=== PATIENT | female | born 1975 | race African-American/Black ===

== ENCOUNTER 2016-12-16 10:10 | Outpatient (CLI) | payer OTHER ==
--- NOTE | 2016-12-16 15:47 | Mammography Report ---
BILATERAL DIGITAL SCREENING MAMMOGRAM with CAD : 12/16/16 10:10:00 CLINICAL: Routine screening. COMPARISON:None available. FINDINGS: The breasts are heterogeneously dense, which may obscure small masses. No mass, architectural distortion or suspicious calcifications. IMPRESSION: No mammographic evidence of malignancy. BI-RADS CATEGORY: 2 -- Benign RECOMMENDATION: Routine mammographic screening in one year. COMMENT: Patient follow-up letters are generated by our [employer] application.
== END 2016-12-16 10:11 | disposition home or self-care (01) ==
LOC: SPVWC 10:10
PROVIDERS: ATTEND Family Medicine
DX: Z12.31 Encounter for screening mammogram for malignant neoplasm of breast (principal)
CPT/HCPCS: 77067; G0202

== ENCOUNTER 2017-12-19 15:19 | Outpatient (CLI) | payer OTHER ==
--- NOTE | 2017-12-19 16:06 | Mammography Report ---
BILATERAL DIGITAL SCREENING MAMMOGRAM with CAD: 12/19/17 15:19:00 CLINICAL: Routine screening. COMPARISON:12/16/16 FINDINGS: The breasts are heterogeneously dense, which may obscure small masses. No mass, architectural distortion or suspicious calcifications. IMPRESSION: No mammographic evidence of malignancy. BI-RADS CATEGORY: 1 - - Negative RECOMMENDATION: Routine mammographic screening in one year. COMMENT: Patient follow-up letters are generated by our [employer] application.
== END 2017-12-19 15:20 | disposition home or self-care (01) ==
LOC: SPVWC 15:19
PROVIDERS: ATTEND Family Medicine
DX: Z12.31 Encounter for screening mammogram for malignant neoplasm of breast (principal)
CPT/HCPCS: 77067

== ENCOUNTER 2019-02-01 14:38 | Outpatient (CLI) | payer OTHER ==
--- NOTE | 2019-02-05 08:15 | Mammography Report ---
DIGITAL SCREENING MAMMOGRAM WITH CAD, 02/01/2019 INDICATION: Routine screening mammography. TECHNIQUE: Digital bilateral 2D mammography was obtained in the craniocaudal and mediolateral obliq ue projections. This examination was interpreted with the benefit of Computer-Aided Detection analysi s. COMPARISON: 12/09/2017 and 12/16/2016 FINDINGS: Breast Density: The breasts are heterogeneously dense, which may obscure small masses. Left parenchymal asymmetries require additional imaging. No architectural distortion or suspicious ca lcifications. The right breast is negative. IMPRESSION: Left asymmetries requiring additional imaging. Recommend recall for left spot compression views and left breast ultrasound. Follow up recommendation: Special View: Spot Category 0: Incomplete. Needs additional imaging evaluation and/or prior mammograms for comparison. A "normal" or negative report should not discourage follow up or biopsy of a clinically significant f inding. A written summary of these findings will be mailed to the patient. The patient will be entered into a mammography reporting system which will generate a reminder letter for the patient's next appointmen t at the appropriate interval. The [employer] recommends yearly mammograms starting at age 40 and continuing as l eileen as a woman is in good health. Breast MRI is recommended for women with an approximate 20-25% or greater lifetime risk of breast cancer, including women with a strong family history of breast or ova juan miguel cancer or who have been treated for Hodgkin's disease. Signer Name: Hammad Hussein MD Signed: 02/05/2019 8:11 AM Workstation Name: [id number]
== END 2019-02-01 14:39 | disposition home or self-care (01) ==
LOC: SPVWC 14:38
PROVIDERS: ATTEND Family Medicine
DX: Z12.31 Encounter for screening mammogram for malignant neoplasm of breast (principal)
CPT/HCPCS: 77067

== ENCOUNTER 2019-02-15 12:49 | Outpatient (CLI) | payer OTHER ==
--- NOTE | 2019-02-15 14:15 | Mammography Report ---
LEFT DIGITAL DIAGNOSTIC MAMMOGRAM WITH CAD -- 02/15/2019 LEFT COMPLETE BREAST ULTRASOUND INDICATION: Recall to evaluate mammographic asymmetries. TECHNIQUE: Digital left mammographic imaging was performed. Spot compression views were obtained. Co mplete ultrasound of all four (4) quadrants was performed. This examination was interpreted with the benefit of Computer-Aided Detection (CAD) analysis. COMPARISON: 02/01/2019 screening. FINDINGS: Breast Density: The breasts are heterogeneously dense, which may obscure small masses. MAMMOGRAPHIC FINDINGS: Spot compression views demonstrates partial effacement of multiple partially c ircumscribed densities. ULTRASOUND FINDINGS: Complete sonographic evaluation of all 4 quadrants and retroareolar region was p erformed. Ultrasound demonstrated an oval complex cyst versus solid mass at 12:00 4 cm from the nip ple measuring 1.8 x 1.0 x 1.4 cm. A benign cyst at 1:00 2 cm from the nipple measuring 1.5 x 0.8 x 1. 1 cm. A benign cyst at 2:00 7 cm from the nipple measuring 1.1 x 0.6 x 1.1 cm. A retroareolar cyst at 10:00 measuring 0.9 x 0.5 x 0.9 cm and a benign cyst at 9:30 o'clock 4 cm from the nipple measuring 1.6 x 0.9 x 1.7 cm. This cyst has a few internal echoes. IMPRESSION: Benign cysts and a complex cyst versus solid mass at 12:00 4 cm from the nipple. Recommen d ultrasound-guided needle aspiration/biopsy of this lesion. I discussed the findings and recommendation for needle biopsy with the patient and her at the time of the exam. Follow up recommendation: Biopsy BI-RADS Category 4: Suspicious for Malignancy. A "normal" or negative report should not discourage follow up or biopsy of a clinically significant f inding. A written summary of these findings will be mailed to the patient. The patient will be entered into a mammography reporting system which will generate a reminder letter for the patient's next appointmen t at the appropriate interval. According to the [employer], yearly mammograms are recommended starting at age 40 and continuing as long as a woman is in good health. Breast MRI is recommended for women with an jacqueline roximately 20-25% or greater lifetime risk of breast cancer, including women with a strong family his tory of breast or ovarian cancer and women who have been treated for Hodgkin's disease. Signer Name: Hammad Hussein MD Signed: 02/15/2019 2:10 PM Workstation Name: [id number]
== END 2019-02-15 12:50 | disposition home or self-care (01) ==
LOC: SPVWC 12:49
PROVIDERS: ATTEND Family Medicine
DX: R92.8 Other abnormal and inconclusive findings on diagnostic imaging of breast (principal)

== ENCOUNTER 2019-02-26 13:50 | Outpatient (CLI) | payer OTHER ==
--- NOTE | 2019-02-26 15:12 | Ultrasound Report ---
ULTRASOUND-GUIDED NEEDLE ASPIRATION LEFT BREAST CLINICAL: Complex cyst versus solid mass at 12:00 4 cm from the nipple. FINDINGS: The procedure was explained to the patient and informed consent was obtained. Ultrasound demonstrated the previously identified lesion. I marked the breast with a felt tip marker and a timeout was called. The skin was prepped with Chloro -Prep and anesthetized with 1% lidocaine. Needle aspiration was performed using ultrasound guidance, 1% lidocaine for anesthesia and an 18-gaug e needle. The lesion showed complete collapse with aspiration an approximately 2 cc of cloudy yellow fluid was removed. The fluid was discarded and a clip was not deployed at the site of aspiration. The patient tolerated the procedure well and there were no apparent complications. Hemostasis was achiev ed with minimal effort and a sterile dressing was applied. IMPRESSION: Uncomplicated ultrasound guided needle aspiration of a benign cyst left breast at 12:00 4 cm from the nipple. Signer Name: Hammad Hussein MD Signed: 02/26/2019 3:08 PM Workstation Name: [id number]
== END 2019-02-26 13:51 | disposition home or self-care (01) ==
LOC: SPVWC 13:50
PROVIDERS: ATTEND Family Medicine
DX: N60.01 Solitary cyst of right breast (principal); R92.8 Other abnormal and inconclusive findings on diagnostic imaging of breast

== ENCOUNTER 2020-02-05 07:59 | Outpatient (CLI) | payer OTHER ==
--- NOTE | 2020-02-06 17:00 | Mammography Report ---
BILATERAL DIGITAL SCREENING MAMMOGRAM WITH CAD HISTORY: SCREENING MAMMOGRAM TECHNIQUE: Routine digital mammographic imaging performed. This examination was interpreted with lisa jon benefit of Computer-aided Detection analysis. COMPARISON: 02/26/2019, 02/15/2019, 02/01/2019, 12/19/2017, 12/16/2016. FINDINGS: Breast Density: heterogeneously dense breast parenchymal pattern which somewhat lessens the sensitivi ty of the evaluation. Digital CC and MLO views demonstrate no mammographic evidence of malignancy. There are multiple scat tered circumscribed and obscured round and oval masses in both breasts. These are most consistent wit h cysts. Of note, the patient has a history of benign cyst aspiration. IMPRESSION: No mammographic evidence of malignancy. If the clinical examination remains stable, recommend bilate ral mammogram in approximately one year. BIRADS 2: Benign Finding(s). FURTHER INFORMATION: According to the [employer], yearly mammograms are recommend ed starting at age 40 and continuing as long as a woman is in good health. Clinical Breast Exams shou ld be part of a periodic health exam-about every 3 years for women in their 20s and 30s and every yea r for women 40 and over. Breast self exam is an option for women starting in their 20s. Any breast ch bernarda noted on a breast self exam should be reported promptly to the patient's healthcare provider. Br east MRI is recommended for women with an approximately 20-25% or greater lifetime risk of breast can cer, including women with a strong family history of breast or ovarian cancer and women who have been treated for Hodgkin's disease. A negative Mammography report should not discourage follow up or biopsy of a clinically significant f inding and/or abnormality. Dense breast tissue may obscure small neoplasms. The patient will be entered into a reminder system with a target due date for the next screening mamm ogram. Signer Name: Kahlil Roberts MD Signed: 02/06/2020 4:49 PM Workstation Name: [id number]
== END 2020-02-05 08:00 | disposition home or self-care (01) ==
LOC: SPVWC 07:59
PROVIDERS: ATTEND Family Medicine
DX: Z12.31 Encounter for screening mammogram for malignant neoplasm of breast (principal)
CPT/HCPCS: 77067

== ENCOUNTER 2021-02-05 11:13 | Outpatient (CLI) | payer OTHER ==
--- NOTE | 2021-02-05 13:05 | Mammography Report ---
DIGITAL SCREENING MAMMOGRAM WITH CAD, 02/05/2021 CLINICAL INFORMATION / INDICATION: Routine screening mammography. SCREENING MAMMO Z12.31 TECHNIQUE: Digital bilateral 2D mammography was obtained in the craniocaudal and mediolateral obliqu e projections. This examination was interpreted with the benefit of Computer-Aided Detection analysis . COMPARISON: 12/16/2016 through 02/05/2020. FINDINGS: Breast Density: The breasts are heterogeneously dense, which may obscure small masses. No dominant mass, suspicious calcifications, or architectural distortion in either breast. There is benign-appearing changing nodularity bilaterally. IMPRESSION: No mammographic evidence of malignancy. Follow up recommendation: Routine yearly BI-RADS Category 2: Benign. A "normal" or negative report should not discourage follow up or biopsy of a clinically significant f inding. A written summary of these findings will be mailed to the patient. The patient will be entered into a mammography reporting system which will generate a reminder letter for the patient's next appointmen t at the appropriate interval. The [employer] recommends yearly mammograms starting at age 40 and continuing as l eileen as a woman is in good health. Breast MRI is recommended for women with an approximate 20-25% or greater lifetime risk of breast cancer, including women with a strong family history of breast or ova juan miguel cancer or who have been treated for Hodgkin's disease. Signer Name: Ryan Allison MD Signed: 02/05/2021 1:01 PM Workstation Name: [email or web address]
== END 2021-02-05 11:14 | disposition home or self-care (01) ==
LOC: SPVWC 11:13
PROVIDERS: ATTEND Family Medicine
DX: Z12.31 Encounter for screening mammogram for malignant neoplasm of breast (principal)
CPT/HCPCS: 77067